=== PATIENT | male | born 1965 | race African-American/Black ===

== ENCOUNTER 2019-03-02 08:31 | Emergency (ER) | payer OTHER ==
[~2019-03-02] VITALS: Ht 167.6 cm; Wt 103.7 kg
[2019-03-02 08:37] VITALS: BP 138/88
[2019-03-02] MEDS ORDERED: CYCLOBENZAPRINE 10 MG TABLET PO ONE (09:00)
[2019-03-02] MEDS ORDERED: KETOROLAC 30 MG/1 ML IM ONE (09:00)
--- NOTE | 2019-03-02 09:20 | NUR ---
PT HERE WITH C/O LEFT HIP/THIGH PAIN. PT STATES PAIN HAS BEEN GOING ON X 4 DAYS. PT STATES DIFFICULTY WALKING, PAIN IS THROBBING IN INTENSITY. PT AAO X 4, NAD, ROOM AIR, CALL LIGHT WITHIN REACH, XRAY COMPLETED.
[2019-03-02] MEDS ORDERED: CYCLOBENZAPRINE 10 MG TABLET ONE (09:22)
[2019-03-02] MEDS ORDERED: KETOROLAC 30 MG/1 ML ONE (09:22)
--- NOTE | 2019-03-02 09:25 | NUR ---
PT MEDICATED PER ORDERS.
--- NOTE | 2019-03-02 10:07 | NUR ---
ALL RESULTS BACK AT THIS TIME, CHART UP FOR RECHECK.
--- NOTE | 2019-03-02 11:01 | NUR ---
Patient/Caregiver given discharge instructions and they have confirmed that they understand the instructions. Patient ambulatory with steady gait.
== END 2019-03-02 11:03 | disposition home or self-care (01) ==
LOC: ED 08:53
DX: M54.32 Sciatica, left side (principal); M79.652 Pain in left thigh; M25.552 Pain in left hip; I10 Essential (primary) hypertension; E11.9 Type 2 diabetes mellitus without complications; E78.5 Hyperlipidemia, unspecified
CPT/HCPCS: 73502; 73552; 96372; 99283; J1885

== ENCOUNTER 2019-10-19 11:24 | Emergency (ER) | payer OTHER ==
[~2019-10-19] VITALS: Ht 165.1 cm; Wt 100.7 kg
[2019-10-19 11:37] VITALS: BP 153/100
--- NOTE | 2019-10-19 14:08 | NUR ---
Pt from lobby to room Pt arrives to ed with left wrist pain with unknown injury full cms intact and good radial pulse and cap refill to hand.
--- NOTE | 2019-10-19 14:10 | NUR ---
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 YAIR
--- NOTE | 2019-10-19 15:24 | NUR ---
Patient/Caregiver given discharge instructions and they have confirmed that they understand the instructions. Patient ambulatory with steady gait.
== END 2019-10-19 15:26 | disposition home or self-care (01) ==
LOC: ED 13:44
DX: S63.682A Other sprain of left thumb, initial encounter (principal); M67.834 Other specified disorders of tendon, left wrist; X58.XXXA Exposure to other specified factors, initial encounter; Y93.89 Activity, other specified; Y92.89 Other specified places as the place of occurrence of the external cause; Y99.8 Other external cause status
CPT/HCPCS: 29125; 99284

== ENCOUNTER 2020-02-08 14:50 | Emergency (ER) | payer OTHER ==
[~2020-02-08] VITALS: Ht 167.6 cm; Wt 101.0 kg
[2020-02-08 16:52] VITALS: BP 146/107
--- NOTE | 2020-02-08 17:02 | NUR ---
Patient given discharge instructions and they have confirmed that they understand the instructions. Patient ambulatory with steady gait.
== END 2020-02-08 17:03 | disposition home or self-care (01) ==
LOC: ED 16:45
DX: M77.8 Other enthesopathies, not elsewhere classified (principal); M25.532 Pain in left wrist; I10 Essential (primary) hypertension; E78.5 Hyperlipidemia, unspecified
CPT/HCPCS: 99283